=== PATIENT | male | born 1980 | race Caucasian/White ===

== ENCOUNTER 2016-12-25 23:19 | Emergency (ER) | payer SELFPAY ==
[2016-12-25 23:46] VITALS: TEMP 98.7
--- NOTE | 2016-12-26 00:17 | ED.PDOC ---
History of Present Illness - General Chief Complaint: Skin/Abrasion/Tear Stated Complaint: skin irritation Time Seen by Provider: 12/26/16 00:15 Source: patient Exam Limitations: no limitations - History of Present Illness Initial Comments: Zeus Card 36 y/o male working on his driveway pouring concrete it accidentally got into his hands and felt burning pain and redness both hands. Timing/Duration: this evening Severity: mild Location: hands Improving Factors: nothing Worsening Factors: nothing Associated Symptoms: other - redness Allergies/Adverse Reactions: Allergies Penicillins Allergy (Verified 12/25/16 23:43) Home Medications: Ambulatory Orders NK [NK] 12/25/16 Review of Systems - Review of Systems Constitutional: States: no symptoms reported EENTM: States: no symptoms reported Respiratory: States: no symptoms reported Cardiology: States: no symptoms reported Gastrointestinal/Abdominal: States: no symptoms reported Genitourinary: States: no symptoms reported Musculoskeletal: States: no symptoms reported Skin: States: see HPI Past Medical History (General) - Patient Medical History Hx Seizures: No Hx Stroke: No Hx Dementia: No Hx Asthma: No Hx of COPD: No Hx Cardiac Disorders: Yes - Heart murmor mitral valve prolapse Hx Congestive Heart Failure: No Hx Pacemaker: No Hx Hypertension: No Hx Thyroid Disease: No Hx Diabetes: No Hx Gastroesophageal Reflux: No Hx Renal Disease: No Hx Cancer: No Hx of HIV: No Hx Hepatitis C: No Hx MRSA: No Surgical History: tonsillectomy, other - Orif right foerarm - Vaccination History Hx Tetanus, Diphtheria Vaccination: No Hx Influenza Vaccination: No Hx Pneumococcal Vaccination: No Immunizations Up to Date: Yes - Social History Hx Tobacco Use: Yes Hx Alcohol Use: No Hx Substance Use: No Family Medical History - Family History Mother Family History: Unknown Physical Exam - Physical Exam General Appearance: Alert, Comfortable, No apparent distress Eyes, Ears, Nose, Throat Exam: PERRL/EOMI, normal ENT inspection Neck: non-tender, full range of motion Cardiovascular/Chest: normal peripheral pulses, regular rate, rhythm, no murmur Respiratory: chest non-tender, lungs clear Gastrointestinal/Abdominal: non tender, soft Back Exam: normal inspection Extremity: non-tender, no calf tenderness Neurologic: alert, oriented x 3 Skin Exam: warm/dry, normal color Skin Problem Location: other - erythema hands Skin Character: other - erythema Lymphatic: no adenopathy Progress - Progress Progress: 12/26/16 00:20 Vital Signs - 8 hr 12/25/16 12/25/16 23:42 23:43 Temperature 98.7 F Pulse Rate [ 108 H 108 H Right radial] Respiratory 18 18 Rate Blood Pressure 150/90 [Right Arm] O2 Sat by Pulse 98 Oximetry Departure - Departure Clinical Impression: Alkaline chemical burn of skin First degree burn of hand Qualifiers: Encounter type: initial encounter Burn of hand location: palm Laterality: unspecified laterality Qualified Code(s): T23.159A - Burn of first degree of unspecified palm, initial encounter Time of Disposition: 00:24 Disposition: Discharge to Home or Self Care Condition: Good Departure Forms: ED Discharge - Pt. Copy, Patient Portal Self Enrollment Instructions: How to Take Care of a Burn, DI for G[place], Minor Garrison ( Alternative Therapy) Home Medications: Ambulatory Orders NK [NK] 12/25/16 Additional Instructions: RETURN TO EMERGENCY ROOM NEEDED
[2016-12-26] MEDS ORDERED: TETANUS,DIPHTHERIA,PERTUSSIS 1 EA SYG IM ONE (00:20)
[2016-12-26] MEDS ORDERED: IBUPROFEN 200 MG TAB PO ONE (00:28)
[2016-12-26 00:56] VITALS: BP 149/88; O2SAT 99
== END 2016-12-26 00:56 | disposition home or self-care (01) ==
LOC: ER 23:19
DX: T54.3X1A Toxic effect of corrosive alkalis and alkali-like substances, accidental (unintentional), initial encounter (principal); T23.5 Corrosion of first degree of wrist and hand; I34.1 Nonrheumatic mitral (valve) prolapse; Z88.0 Allergy status to penicillin; Z23 Encounter for immunization; Z87.891 Personal history of nicotine dependence; Y92.008 Other place in unspecified non-institutional (private) residence as the place of occurrence of the external cause